=== PATIENT | male | born 1935 | race Two or more races ===

== ENCOUNTER 2023-01-08 13:19 | Inpatient (IN) | payer OTHER ==
[~2023-01-08] VITALS: Ht 185.4 cm; Wt 118.5 kg
[2023-01-08 14:13] LABS: Basophils # (auto) 0 10 ^3/uL (0-0.2); Basophils % (auto) 0.7 % (0.0-2.0); Eosinophils # (auto) 0.1 10 ^3/uL (0-0.8); Eosinophils % (auto) 0.9 % (0.0-7.0); Hemoglobin 13.8 g/dL (13.5-17.5); Lymphocytes # (auto) 1.2 10 ^3/uL (0.4-5.4); Lymphocytes % (auto) 16.6 % (10.0-50.0); Mean Corpuscular Hemoglobin 32.6 pg (28.0-32.0); Mean Corpuscular Hgb Conc. 33.7 g/dL (32.0-36.0); Mean Corpuscular Volume 96.8 fL (80.0-100.0); Monocytes # (auto) 0.5 10 ^3/uL (0-1.3); Monocytes % (auto) 6.7 % (0.0-12.0); Neutrophils # (auto) 5.4 10 ^3/uL (1.6-8.6); Neutrophils % (auto) 75.1 % (37.0-80.0); Red Blood Cells 4.23 10^6/uL (4.5-5.90); Red Cell Distribution Width 13.9 % (11.8-14.3); White Blood Cell 7.2 10^3/uL (4.4-10.8)
[2023-01-08 14:53] LABS: Alanine Aminotransferase 24 U/L (7-40); Albumin 4.1 g/dL (3.2-4.8); Alkaline Phosphatase 74 U/L (46-116); Anion Gap 7 (5-15); Aspartate Aminotransferase 24 U/L (13-40); Bilirubin, Total 0.6 mg/dL (0.2-1.0); Blood Urea Nitrogen 24 mg/dL (9-23); Calcium 9.5 mg/dL (8.5-10.1); Carbon Dioxide 27 mmol/L (20-30); Chloride 109 mmol/L (98-107); Glucose 226 mg/dL (74-106); Potassium 4.5 mmol/L (3.5-5.1); Sodium 143 mmol/L (136-145); Total Protein 6.3 g/dL (5.7-8.2)
[2023-01-08 14:54] LABS: BUN/Creatinine Ratio 15.6 (10.0-20.0)
[2023-01-08 15:29] LABS: Magnesium 1.8 mg/dL (1.6-2.6)
[2023-01-08 17:25] VITALS: PULSE 80; RESP 17; O2SAT 94
[2023-01-08 17:38] LABS: INR 1.09 (0.9-1.15); Partial Thromboplastin Time 26.4 SEC (24.5-34.5); Prothrombin Time 11.6 sec (9.3-11.8)
[2023-01-08] MEDS ORDERED: MORPHINE SULFATE INJ 2 MG/ml SYRG IV PRN (18:15)
[2023-01-08] MEDS ORDERED: DOCUSATE SOD 100 MG CAP PO PRN (18:15)
[2023-01-08] MEDS ORDERED: ONDANSETRON HCL 4 MG/2 ML VIAL IV PRN (18:15)
[2023-01-08] MEDS ORDERED: DEXTROSE (50%) 50ML SYRG IV PRN (18:15)
[2023-01-08 20:13] VITALS: PULSE 77; RESP 20; O2SAT 94
[2023-01-08] MEDS: SODIUM CHLORIDE 0.9% 1,000 ML IV SCH (21:18)
[2023-01-09] VITALS (8 sets, daily range): BP systolic 132–171; BP diastolic 50–87; PULSE 56–82; RESP 16–17; TEMP 97.5–98.7; O2SAT 92–100
[2023-01-09 00:37] LABS: Hematocrit 42.2 % (41.0-53.0); Hemoglobin 14.1 g/dL (13.5-17.5)
[2023-01-09] MEDS: ACCU-CHEK COMFORT CURVE STRIP VI SCH ×5 (00:39→22:30)
[2023-01-09] MEDS: InsuLIN REG 1unit/0.01ml Soln (100units/ml) SC SCH ×5 (00:44→22:32)
[2023-01-09] MEDS ORDERED: CLOP75TA70 PO (00:56)
[2023-01-09] MEDS ORDERED: INS7030I SC (00:56)
[2023-01-09] MEDS ORDERED: FUR20T PO (00:56)
[2023-01-09] MEDS ORDERED: CARV3.1240 PO (00:56)
[2023-01-09 01:22] LABS: Urine Bacteria NONE SEEN /hpf (None Seen); Urine Blood Negative /uL (Negative); Urine Clarity Clear (Clear); Urine Color Yellow (Yellow); Urine Hyaline Cast MANY /lpf (0 - 2); Urine Protein, UAD Negative (Negative); Urine Specific Gravity 1.021 (1.001-1.035); Urine Urobilinogen Normal (Negative); Urine WBC <1 /hpf (0 - 3); Urine pH 5.5 (5.0-8.0)
[2023-01-09 01:36] LABS: Creatinine, Urine 121.51 mg/dL (30.0-125.0)
[2023-01-09] MEDS: SODIUM CHLORIDE 0.9% 1,000 ML IV SCH (02:35)
[2023-01-09 05:21] LABS: Basophils # (auto) 0.1 10 ^3/uL (0-0.2); Basophils % (auto) 0.8 % (0.0-2.0); Eosinophils # (auto) 0.1 10 ^3/uL (0-0.8); Eosinophils % (auto) 1.2 % (0.0-7.0); Hematocrit 35.7 % (41.0-53.0); Hemoglobin 12.3 g/dL (13.5-17.5); Lymphocytes # (auto) 1.4 10 ^3/uL (0.4-5.4); Mean Corpuscular Hemoglobin 33.5 pg (28.0-32.0); Mean Corpuscular Hgb Conc. 34.5 g/dL (32.0-36.0); Mean Corpuscular Volume 97.3 fL (80.0-100.0); Monocytes # (auto) 0.8 10 ^3/uL (0-1.3); Monocytes % (auto) 11.4 % (0.0-12.0); Neutrophils # (auto) 4.8 10 ^3/uL (1.6-8.6); Neutrophils % (auto) 67.6 % (37.0-80.0); Nucleated Red Blood Cells % 0.1 %; Red Blood Cells 3.67 10^6/uL (4.5-5.90); Red Cell Distribution Width 13.7 % (11.8-14.3); White Blood Cell 7.1 10^3/uL (4.4-10.8)
[2023-01-09 05:27] LABS: Alanine Aminotransferase 21 U/L (7-40); Albumin 3.7 g/dL (3.2-4.8); Alkaline Phosphatase 70 U/L (46-116); Anion Gap 7 (5-15); Aspartate Aminotransferase 22 U/L (13-40); BUN/Creatinine Ratio 15.7 (10.0-20.0); Blood Urea Nitrogen 20 mg/dL (9-23); Calcium 8.8 mg/dL (8.7-10.4); Carbon Dioxide 22 mmol/L (20-30); Chloride 112 mmol/L (98-107); Glucose 150 mg/dL (74-106); Potassium 3.8 mmol/L (3.5-5.1); Sodium 141 mmol/L (136-145)
[2023-01-09 05:28] LABS: Total Protein 5.8 g/dL (5.7-8.2)
[2023-01-09] MEDS: cefTRIAXone 1GM/50ML D5W 50 ML IV SCH (09:24)
[2023-01-09] MEDS: PANTOPRAZOLE 40 MG/10 ML VIAL INJ IV SCH (09:24)
[2023-01-09] MEDS ORDERED: ALPRAZolam 0.25 MG TAB PO PRN (10:45)
[2023-01-09] MEDS ORDERED: CARVEDILOL 3.125 MG TAB PO ONE (10:45)
[2023-01-09 12:16] LABS: Hematocrit 36.5 % (41.0-53.0); Hemoglobin 12.3 g/dL (13.5-17.5)
[2023-01-09] MEDS ORDERED: GOLYTELY 4L KIT PO ONE ×2 (13:30→16:30)
[2023-01-09] MEDS ORDERED: POLYETHYLENE GLYCOL 17 GM PWDR PO ONE (16:45)
[2023-01-09] MEDS: TAMSULOSIN HYDROCHLORIDE 0.4 MG CAP PO SCH (17:54)
[2023-01-09 18:31] LABS: Hematocrit 37.3 % (41.0-53.0); Hemoglobin 12.7 g/dL (13.5-17.5)
[2023-01-09] MEDS: TEMAZEPAM 15 MG CAP PO PRN (22:24)
[2023-01-09] MEDS: CARVEDILOL 3.125 MG TAB PO SCH (22:24)
[2023-01-10] VITALS (9 sets, daily range): BP systolic 122–140; BP diastolic 52–67; PULSE 60–91; RESP 15–21; TEMP 97.8–98.3; O2SAT 92–97
[2023-01-10] MEDS ORDERED: GOLYTELY 4L KIT PO ONE (06:00)
[2023-01-10] MEDS ORDERED: POLYETHYLENE GLYCOL 17 GM PWDR PO ONE (06:00)
[2023-01-10] MEDS: ACCU-CHEK COMFORT CURVE STRIP VI SCH ×4 (06:13→22:13)
[2023-01-10] MEDS: InsuLIN REG 1unit/0.01ml Soln (100units/ml) SC SCH ×4 (06:14→22:22)
[2023-01-10 07:17] LABS: Basophils # (auto) 0.1 10 ^3/uL (0-0.2); Basophils % (auto) 0.7 % (0.0-2.0); Eosinophils # (auto) 0.1 10 ^3/uL (0-0.8); Eosinophils % (auto) 1.2 % (0.0-7.0); Hematocrit 35.6 % (41.0-53.0); Hemoglobin 12.1 g/dL (13.5-17.5); Lymphocytes # (auto) 1.6 10 ^3/uL (0.4-5.4); Lymphocytes % (auto) 21.3 % (10.0-50.0); Mean Corpuscular Hemoglobin 32.7 pg (28.0-32.0); Mean Corpuscular Volume 96.1 fL (80.0-100.0); Monocytes # (auto) 0.7 10 ^3/uL (0-1.3); Monocytes % (auto) 9.4 % (0.0-12.0); Neutrophils % (auto) 67.4 % (37.0-80.0); Nucleated Red Blood Cells % 0.1 %; Red Cell Distribution Width 13.4 % (11.8-14.3); White Blood Cell 7.4 10^3/uL (4.4-10.8)
[2023-01-10 07:36] LABS: INR 1.14 (0.9-1.15); Partial Thromboplastin Time 27.3 SEC (24.5-34.5); Prothrombin Time 11.9 sec (9.3-11.8)
[2023-01-10 07:39] LABS: Alanine Aminotransferase 26 U/L (7-40); Alkaline Phosphatase 87 U/L (46-116); Anion Gap 10 (5-15); Aspartate Aminotransferase 53 U/L (13-40); BUN/Creatinine Ratio 11.2 (10.0-20.0); Blood Urea Nitrogen 14 mg/dL (9-23); Calcium 8.7 mg/dL (8.7-10.4); Carbon Dioxide 22 mmol/L (20-30); Chloride 107 mmol/L (98-107); Glucose 163 mg/dL (74-106); Magnesium 1.7 mg/dL (1.6-2.6); Potassium 3.8 mmol/L (3.5-5.1); Sodium 139 mmol/L (136-145)
[2023-01-10 07:40] LABS: Bilirubin, Total 1.6 mg/dL (0.2-1.0); Total Protein 6.2 g/dL (5.7-8.2)
[2023-01-10] MEDS ORDERED: NALOXONE HCL 0.4 MG/ML VIAL ONE (08:27)
[2023-01-10] MEDS ORDERED: FLUMAZENIL 0.1 MG/ML INJ 10ML MDV IV ONE (08:27)
[2023-01-10] MEDS: PANTOPRAZOLE 40 MG/10 ML VIAL INJ IV SCH (10:46)
[2023-01-10] MEDS: cefTRIAXone 1GM/50ML D5W 50 ML IV SCH (10:46)
[2023-01-10] MEDS: CARVEDILOL 3.125 MG TAB PO SCH ×2 (12:22→22:07)
[2023-01-10] MEDS ORDERED: SODIUM CHLORIDE LOCK 10 ML ONE (12:42)
[2023-01-10] MEDS ORDERED: fentaNYL CITRATE 100 MCG/2 ML VL ONE (12:43)
[2023-01-10] MEDS ORDERED: MIDAZOLAM HCL 5 MG/ML-1ML VIAL ONE (12:43)
[2023-01-10] MEDS ORDERED: diphenhdrAMINE HCL 50 MG/1 ML VL ONE (12:43)
[2023-01-10] MEDS: TAMSULOSIN HYDROCHLORIDE 0.4 MG CAP PO SCH (18:40)
[2023-01-10] MEDS: TEMAZEPAM 15 MG CAP PO PRN (22:07)
[2023-01-11 05:00] VITALS: BP 126/53; PULSE 75; RESP 18; TEMP 98.3; O2SAT 92
[2023-01-11] MEDS: InsuLIN REG 1unit/0.01ml Soln (100units/ml) SC SCH ×2 (06:18→11:30)
[2023-01-11] MEDS: ACCU-CHEK COMFORT CURVE STRIP VI SCH ×2 (06:19→11:30)
[2023-01-11 06:43] LABS: Chloride 111 mmol/L (98-107); Potassium 3.4 mmol/L (3.5-5.1); Sodium 142 mmol/L (136-145)
[2023-01-11 06:44] LABS: Anion Gap 6 (5-15); Carbon Dioxide 25 mmol/L (20-30)
[2023-01-11 06:45] LABS: Calcium 8.3 mg/dL (8.7-10.4)
[2023-01-11 06:49] LABS: BUN/Creatinine Ratio 9.7 (10.0-20.0); Blood Urea Nitrogen 12 mg/dL (9-23); Glucose 144 mg/dL (74-106)
[2023-01-11 06:55] LABS: Basophils # (auto) 0 10 ^3/uL (0-0.2); Basophils % (auto) 0.8 % (0.0-2.0); Eosinophils # (auto) 0.2 10 ^3/uL (0-0.8); Eosinophils % (auto) 2.6 % (0.0-7.0); Hematocrit 32.5 % (41.0-53.0); Hemoglobin 10.9 g/dL (13.5-17.5); Lymphocytes # (auto) 1.3 10 ^3/uL (0.4-5.4); Lymphocytes % (auto) 20.8 % (10.0-50.0); Mean Corpuscular Hemoglobin 32.8 pg (28.0-32.0); Mean Corpuscular Hgb Conc. 33.4 g/dL (32.0-36.0); Mean Corpuscular Volume 98.2 fL (80.0-100.0); Monocytes # (auto) 0.6 10 ^3/uL (0-1.3); Monocytes % (auto) 9.7 % (0.0-12.0); Neutrophils # (auto) 4.1 10 ^3/uL (1.6-8.6); Neutrophils % (auto) 66.1 % (37.0-80.0); Nucleated Red Blood Cells % 0.1 %; Red Blood Cells 3.31 10^6/uL (4.5-5.90); Red Cell Distribution Width 13.7 % (11.8-14.3); White Blood Cell 6.1 10^3/uL (4.4-10.8)
[2023-01-11 08:00] VITALS: PULSE 76
[2023-01-11] MEDS ORDERED: POTASSIUM CHL 20 Meq TABLET PO ONE (08:00)
[2023-01-11 08:15] VITALS: BP 129/59; PULSE 77; RESP 18; TEMP 98.2; O2SAT 95
[2023-01-11] MEDS ORDERED: LIDOCAINE 2% JELLY 11ml (GLYDO) ONE (08:36)
[2023-01-11 08:52] LABS: Hepatitis B Surface Antigen Negative (Negative)
[2023-01-11] MEDS: cefTRIAXone 1GM/50ML D5W 50 ML IV SCH (09:00)
[2023-01-11] MEDS: PANTOPRAZOLE 40 MG/10 ML VIAL INJ IV SCH (09:09)
[2023-01-11] MEDS: CARVEDILOL 3.125 MG TAB PO SCH (09:09)
[2023-01-11 09:13] LABS: Hepatitis C Antibody Negative (Negative)
== END 2023-01-11 12:59 | disposition home or self-care (01) | DRG 378 ==
LOC: ER 13:19 → TELE 18:26 → TELE-WESTW 23:20
PROVIDERS: ADMIT Nurse Practitioner Family; ATTEND Internal Medicine Geriatric Medicine
PROC: 0DBP8ZX Excision of Rectum, Via Natural or Artificial Opening Endoscopic, Diagnostic (ICD-10-PCS; principal; 2023-01-10 16:14)
DX: K57.31 Diverticulosis of large intestine without perforation or abscess with bleeding (principal); N20.2 Calculus of kidney with calculus of ureter; I12.9 Hypertensive chronic kidney disease with stage 1 through stage 4 chronic kidney disease, or unspecified chronic kidney disease; E11.22 Type 2 diabetes mellitus with diabetic chronic kidney disease; E66.9 Obesity, unspecified; G47.00 Insomnia, unspecified; K64.8 Other hemorrhoids; N13.9 Obstructive and reflux uropathy, unspecified; G89.29 Other chronic pain; I25.10 Atherosclerotic heart disease of native coronary artery without angina pectoris; N18.9 Chronic kidney disease, unspecified; Z98.61 Coronary angioplasty status; Z68.34 Body mass index [BMI] 34.0-34.9, adult; Z82.49 Family history of ischemic heart disease and other diseases of the circulatory system; Z79.82 Long term (current) use of aspirin; Z79.02 Long term (current) use of antithrombotics/antiplatelets
CPT/HCPCS: 36415; 45380; 74176; 80048; 80053; 81001; 82570; 82962; 83036; 83735; 84300; 85014; 85018; 85025; 85610; 85730; 86803; 86850; 86900; 86901; 87340; 93005; 93306; 96360; 96372; C9113; G0378; J0696; J1815; J2250